=== PATIENT | female | born 1995 | race Caucasian/White ===

== ENCOUNTER → 2023-05-21 09:45 | Outpatient (BNVA) | payer BC, SELFPAY | PROVIDERS: PCP Nurse Practitioner Family; Referring Provider Nurse Practitioner Family; Visit Provider Nurse Practitioner Women's Health | DX: E28.2 Polycystic ovarian syndrome (principal) | CPT/HCPCS: 80053; 80061; 82670; 83001; 83036; 84439; 84443; 84702 ==

== ENCOUNTER → 2023-06-03 10:12 | Outpatient (BNVA) | payer BC, SELFPAY | PROVIDERS: PCP Nurse Practitioner Family; Visit Provider Nurse Practitioner Women's Health | DX: E28.2 Polycystic ovarian syndrome (principal) | CPT/HCPCS: 76856 ==

== ENCOUNTER → 2024-07-21 16:27 | Outpatient (BNVA) | payer BC, SELFPAY | PROVIDERS: PCP Nurse Practitioner Family; Visit Provider Nurse Practitioner Women's Health | DX: Z12.4 Encounter for screening for malignant neoplasm of cervix (principal) | CPT/HCPCS: 87624 ==

== ENCOUNTER 2024-08-24 23:05 | Emergency (ER) | payer BC, SELFPAY ==
[2024-08-24 23:06] VITALS: BP 131/83; PULSE 63; RESP 18; TEMP 36.6; O2SAT 99; BMI 49.9
[2024-08-24 23:31] VITALS: BP 135/61; PULSE 70; RESP 18; O2SAT 100
[2024-08-24] MEDS: lidocaine 2% viscous 15 ML, aluminum-mag hydrox-simethicon 30 ML, sucralfate oral liq 1 GM PO (23:44)
[2024-08-25] VITALS (7 sets, daily range): BP systolic 128–146; BP diastolic 56–90; PULSE 63–84; RESP 18; O2SAT 97–100
[2024-08-25 00:08] LABS: Add Urine Microscopic? YES; Bacteria Urine Trace /hpf; Bilirubin Urine Negative (Negative); Blood Urine Non-haemolysed trace (Negative); Glucose Urine UA Negative (Normal); Hyaline Casts Urine 1.65 /lpf; Ketones Urine 1+ (Negative); Leukocyte Esterase Urine Trace (Negative); Nitrate Urine Negative (Negative); Protein Urine Trace (Negative); Specific Gravity, Urine 1.031 (1.005-1.030); Urine Appearance Clear (CLEAR); Urine Color Yellow (Yellow)
--- NOTE | 2024-08-25 00:13 | ED_ITS ---
Documented by User: PRO Noland 08/25/24 13:30 HPI - Abdominal Pain 2 General: Chief Complaint: Abdominal Pain Stated Complaint: abd pain Time Seen by Provider: 08/24/24 23:27 Source: patient Mode of arrival: ambulatory Limitations: no limitations History of Present Illness: Patient is a 29-year-old female presenting to the emergency department complaining of abdominal pain for the past 5 days. She states that it initially began in the left upper quadrant, and is now the right upper quadrant extends to the back. Still has her gallbladder and appendix. History of PCOS, no other medical history other than hypothyroid issue for which she takes levothyroxine. Denies any vomiting, constipation or diarrhea, urinary symptoms, fevers, or other symptoms at this time. She states the pain is currently a 7/10, feels like a sharpness. States that shortly after eating it is worsened. MD elicited complaint: abdominal pain Onset (ago): day(s) (5) Location: LUQ and RUQ Severity: moderate Pain scale (0-10): 7 Radiation: back Exacerbating factors: eating Associated Symptoms: Denies bloating, change in stool character, chills, constipation, diarrhea, dysuria, fever(s), hematochezia, nausea and vomiting Related Data Home Medications Medication Instructions Recorded Confirmed levothyroxine 25 mcg capsule 25 mcg PO DAILY 07/08/23 07/21/24 fish, borage, flaxseed oils-omega cap PO DAILY 07/21/24 07/21/24 3,6,9 comb no.1 1,200 mg capsule ([place] 3-6-9) Previous Rx's Medication Instructions Recorded norethindrone 1 mg-ethinyl 1 tab PO DAILY #84 tabs 07/21/24 estradiol 20 mcg (21)-iron 75 mg (7) tablet (11/08 (28)) amoxicillin 875 mg-potassium 1 tab PO Q12H #14 tabs 08/25/24 clavulanate 125 mg tablet meloxicam 7.5 mg tablet 7.5 mg PO .Twice daily #14 tabs 08/25/24 Allergies Allergy/AdvReac Type Severity Reaction Status Date / Time No Known Allergies Allergy Verified 08/24/24 23:15 Review of Systems 2 General: Reports: 10 or more systems reviewed and unremarkable except in HPI and below Const: Denies: fever(s), chills, change in appetite, change in weight or diaphoresis ENMT: Denies: throat pain or hoarseness Card: Denies: chest pain, palpitations or lightheadedness Resp: Denies: dyspnea, productive cough or wheezing GI: Reports: abdominal pain; Denies: nausea, vomiting, diarrhea, constipation, bloating, change in stool character or hematochezia : Denies: flank pain, difficulty voiding, dysuria, urinary frequency or urinary urgency Musc: Reports: back pain; Denies: neck pain Skin/Breast: Denies: rash or new lesions Neuro: Denies: headache(s) or dizziness PFSH ED 2 PFSH: Medical History Hypothyroid PCOS (polycystic ovarian syndrome) No pertinent past medical history neghx: htn, dm, thyroid(pending), dvt/pe PCP: Junie Nicole NP Surgical History No pertinent past surgical history Family History Father Hypertension Diabetes Mother Hypertension Thyroid disease Grandfather Breast cancer Grandmother Breast cancer Uterine cancer Denies family history of Colon cancer Ovarian cancer Heart disease Hyperlipidemia Stroke Social History Smoking and tobacco/nicotine status: never used tobacco/nicotine Physical Exam 2 Const: COMMON NORMALS: no acute distress, patient oriented x3, no limitations, healthy appearing, alert and well nourished GENERAL APPEARANCE: cooperative and comfortable NUTRITIONAL APPEARANCE: obese morbidly obese O RIENTATION/CONSCIOUSNESS: Yes awake HENMT: COMMON NORMALS: normocephalic, atraumatic, hearing grossly normal bilaterally, external ears normal, Normal external nose present, Normal nasal mucous membranes and turbinates present and moist oral mucous membranes HEAD & SCALP: normocephalic and atraumatic NOSE: Normal external nose present and Normal nasal mucous membranes and turbinates present EXTERNAL EAR: Yes external ears normal Eye: COMMON NORMALS: Equal, round and reactive pupils present, EOMs intact bilaterally, conjunctivae normal and normal visual thomas by confrontation C ONJUNCTIVA: Yes conjunctivae normal PUPIL: Yes Equal, round and reactive pupils present Neck/C-Spine: COMMON NORMALS: full ROM, supple, no meningeal signs and no JVD Resp: COMMON NORMALS: normal respiratory effort, No retractions, No use of accessory muscles and clear to auscultation bilaterally AUSCULTATION: clear to auscultation bilaterally, no crackles, no rales, no rhonchi and no wheezes Cardio: COMMON NORMALS: no JVD, regular rate, regular rhythm, S1 normal heart sound present, S2 normal heart sound present, No gallops present (Cardio), No clicks present (Cardio), No murmurs present (Cardio), No rub (Cardio) and Peripheral pulses 2+ throughout RATE: regular rate RHYTHM: regular rhythm HEART SOUNDS: S1 normal heart sound present and S2 normal heart sound present PERIPHERAL PULSES: Peripheral pulses 2+ throughout GI: COMMON NORMALS: Normal to inspection, nondistended, normoactive bowel sounds present, Soft to palpation, No hepatosplenomegaly present and no masses AUSCULTATION: Yes normoactive bowel sounds PALPATION: Yes Soft to palpation, Yes Tenderness to palpation present (GI) (Negative Max sign) Details: LUQ and RUQ, No Guarding due to palpation present (GI), No Rigid due to palpation and Yes No hepatosplenomegaly present RECTAL EXAM: deferred : COMMON NORMALS: Yes no CVA tenderness BLADDER/KIDNEY EXAM: Yes no CVA tenderness Back/Pelvis: COMMON NORMALS: no CVA tenderness Extremity: COMMON NORMALS: normal to inspection and full ROM Neuro: COMMON NORMALS: patient oriented x3, moves all extremities, no focal motor deficits and no sensory deficits noted SENSORIUM/ORIENTATION: Yes alert MENINGEAL SIGNS: Yes no meningeal signs Psych: COMMON NORMALS: mental status grossly normal, cooperative and speech normal SPEECH: Yes normal speech Skin: COMMON NORMALS: no rashes or lesions noted GENERAL SKIN EXAM: no rashes or lesions noted Course 2 Vital Signs: Vital signs: Vital Signs Temperature 97.8 F 08/24/24 23:06 Pulse Rate 84 08/25/24 03:11 Respiratory Rate 18 08/25/24 00:49 Blood Pressure 146/56 08/25/24 03:11 Pulse Oximetry 99 08/25/24 03:11 Oxygen Delivery Me thod Room Air 08/25/24 01:30 MDM - Abdominal Pain Lab Data 08/25/24 01:04 08/25/24 01:04 Labs/Radiology: Radiology Impressions Gallbladder Ultrasound 08/25/24 23:35 IMPRESSION: 1. Hyperechoic liver, which can be seen with fatty infiltration or hepatocellular disease. 2. Imaging findings concerning for acute calculus cholecystitis. Further evaluation with HIDA scan should be considered in the adequate clinical setting. Laboratory Results WBC 14.06 10^3/uL (3.29-11.43) H 08/25/24 01:04 RBC 5.14 10^6/uL (3.85-5.65) 08/25/24 01:04 Hgb 14.80 g/dL (11.27-16.99) 08/25/24 01:04 Hct 45.7 % (36-47) 08/25/24 01:04 MCV 88.9 fl (85-98) 08/25/24 01:04 MCH 28.8 pg (27-33) 08/25/24 01:04 MCHC 32.4 g/dL (30-55) 08/25/24 01:04 RDW 12.7 % (12.1-15.1) 08/25/24 01:04 Plt Count 277 10^3/cmm (157-399) 08/25/24 01:04 MPV 9.6 fL (7.4-10.4) 08/25/24 01:04 Neut % (Auto) 86.7 % 08/25/24 01:04 Lymph % (Auto) 9.0 % 08/25/24 01:04 [place] % (Auto) 3.6 % 08/25/24 01:04 Eos % (Auto) 0.1 % 08/25/24 01:04 Baso % (Auto) 0.3 % 08/25/24 01:04 Neut # (Auto) 12.20 10^3/uL (1.8-7.7) H 08/25/24 01:04 Lymph # (Auto) 1.3 10^3/uL (0.8-4.8) 08/25/24 01:04 [place] # (Auto) 0.5 10^3/uL (0.2-0.9) 08/25/24 01:04 Eos # (Auto) 0.0 10^3/uL (0.0-0.8) 08/25/24 01:04 Baso # (Auto) 0.0 10^3/uL (0.0-0.1) 08/25/24 01:04 Nucleated RBC % (auto) 0 % 08/25/24 01:04 Nucleated RBCs # 0.0 /100WBC 08/25/24 01:04 Sodium 139 mmol/L (136-145) 08/25/24 01:04 Potassium 4.2 mmol/L (3.5-5.1) 08/25/24 01:04 Chloride 101 mmol/L (98-107) 08/25/24 01:04 Carbon Dioxide 24 mmol/L (22-29) 08/25/24 01:04 Anion Gap 18.2 (5-19) 08/25/24 01:04 BUN 13 mg/dL (6-20) 08/25/24 01:04 Creatinine 0.8 mg/dL (0.5-0.9) 08/25/24 01:04 GFR Calculation 84.2 mL/min (90-130) L 08/25/24 01:04 Glucose 108 mg/dL (65-115) 08/25/24 01:04 Calculated Osmolality 289 mOsm/kg (285-295) 08/25/24 01:04 Calcium 9.0 mg/dL (8.5-10.5) 08/25/24 01:04 Total Bilirubin 0.5 mg/dL (0.15-1.2) 08/25/24 01:04 AST 24 U/L (0-32) 08/25/24 01:04 ALT 41 U/L (0-33) H 08/25/24 01:04 Alkaline Phosphatase 86 U/L (35-105) 08/25/24 01:04 Total Protein 7.2 g/dL (6.6-8.7) 08/25/24 01:04 Albumin 4.5 g/dL (3.5-5.2) 08/25/24 01:04 Globulin 2.7 g/dL (1.3-4.6) 08/25/24 01:04 Lipase 18 U/L (13-60) 08/25/24 01:04 HCG, Qual Negative (Negative) 08/25/24 01:04 Urine Color Yellow (Yellow) 08/24/24 23:47 Urine Appearance Clear (CLEAR) 08/24/24 23:47 Urine pH 6.0 (5-7) 08/24/24 23:47 Ur Specific [place] 1.031 (1.005-1.030) H 08/24/24 23:47 Urine Protein Trace (Negative) A 08/24/24 23:47 Urine Glucose (UA) Negative (Normal) 08/24/24 23:47 Urine Ketones 1+ (Negative) H 08/24/24 23:47 Urine Blood Non-haemolysed trace (Negative) 08/24/24 23:47 Urine Nitrate Negative (Negative) 08/24/24 23:47 Urine Bilirubin Negative (Negative) 08/24/24 23:47 Urine Urobilinogen 1.0 mg/dL (Negative) 08/24/24 23:47 Ur Leukocyte Esterase Trace (Negative) A 08/24/24 23:47 Urine RBC 3-5 /hpf (0-2) 08/24/24 23:47 Urine WBC 6-10 /hpf (0-5) 08/24/24 23:47 Ur Squamous Epith Cells 11-20 /hpf (0-5) 08/24/24 23:47 Amorphous Sediment Not Reportable 08/24/24 23:47 Urine Bacteria Trace /hpf (NONE) 08/24/24 23:47 Hyaline Casts 1.65 /lpf 08/24/24 23:47 All radiology interpretation(s) finalized by discharge Discharge Plan Discharge Patient Disposition: Home Clinical Impression: Acute calculous cholecystitis Condition: Stable Prescriptions: New amoxicillin-pot clavulanate 875-125 mg tablet 1 tab PO Q12H Qty: 14 0RF meloxicam 7.5 mg tablet 7.5 mg PO .Twice daily Qty: 14 0RF No Action levothyroxine 25 mcg capsule 25 mcg PO DAILY [place] 3-6-9 1,200 mg capsule PO DAILY norethindrone-e.estradiol-iron [[place] FE 11/08 (28)] 1 mg-20 mcg (21)/75 mg (7) tablet 1 tab PO DAILY Qty: 84 3RF Discharge Orders: Discharge ED (Routine); Ordered 08/25/24 Ordered By: Cyrus Martínez Referrals: Pedro Howell MD [Physician] - 4-7 days (Call his office for an appointment) Junie Nicole FNP [Primary Care Provider] - Patient Instructions: Cholecystitis (ED) Activity Restrictions/Additional Instructions: The surgeon like you to call his office first thing tomorrow to arrange an appointment within next week. You have been prescribed a pain medicine and antibiotic please fill these at the pharmacy and take these as directed. Stand Alone Forms: Work/School Release Coding Level of Care Code ED Lead Nuclear Medicine Technologist for Chg Fwd Documented by User: Cyrus Martínez DO 08/25/24 03:04 HPI - Abdominal Pain 2 General: Chief Complaint: Abdominal Pain Stated Complaint: abd pain Time Seen by Provider: 08/24/24 23:27 Related Data Home Medications Medication Instructions Recorded Confirmed levothyroxine 25 mcg capsule 25 mcg PO DAILY 07/08/23 07/21/24 fish, borage, flaxseed oils-omega cap PO DAILY 07/21/24 07/21/24 3,6,9 comb no.1 1,200 mg capsule ([place] 3-6-9) Previous Rx's Medication Instructions Recorded norethindrone 1 mg-ethinyl 1 tab PO DAILY #84 tabs 07/21/24 estradiol 20 mcg (21)-iron 75 mg (7) tablet (11/08 (28)) amoxicillin 875 mg-potassium 1 tab PO Q12H #14 tabs 08/25/24 clavulanate 125 mg tablet meloxicam 7.5 mg tablet 7.5 mg PO .Twice daily #14 tabs 08/25/24 Allergies Allergy/AdvReac Type Severity Reaction Status Date / Time No Known Allergies Allergy Verified 08/24/24 23:15 PFS ED 2 PFSH: Medical History Hypothyroid PCOS (polycystic ovarian syndrome) No pertinent past medical history neghx: htn, dm, thyroid(pending), dvt/pe PCP: Junie Nicole NP Surgical History No pertinent past surgical history Family History Father Hypertension Diabetes Mother Hypertension Thyroid disease Grandfather Breast cancer Grandmother Breast cancer Uterine cancer Denies family history of Colon cancer Ovarian cancer Heart disease Hyperlipidemia Stroke Social History Smoking and tobacco/nicotine status: never used tobacco/nicotine Course 2 Vital Signs: Vital signs: Vital Signs Temperature 97.8 F 08/24/24 23:06 Pulse Rate 84 08/25/24 03:11 Respiratory Rate 18 08/25/24 00:49 Blood Pressure 146/56 08/25/24 03:11 Pulse Oximetry 99 08/25/24 03:11 Oxygen Delivery Me thod Room Air 08/25/24 01:30 MDM - Abdominal Pain Medical Decision Making Lab work reviewed as well as ultrasound, patient has acute cholecystitis, these results were discussed with the patient. These results was also discussed with the Dr. Howell who wants us to give her a weeks worth of Augmentin and have her follow-up with him on an outpatient basis. Lab Data 08/25/24 01:04 08/25/24 01:04 Labs/Radiology: Radiology Impressions Gallbladder Ultrasound 08/25/24 23:35 IMPRESSION: 1. Hyperechoic liver, which can be seen with fatty infiltration or hepatocellular disease. 2. Imaging findings concerning for acute calculus cholecystitis. Further evaluation with HIDA scan should be considered in the adequate clinical setting. Laboratory Results WBC 14.06 10^3/uL (3.29-11.43) H 08/25/24 01:04 RBC 5.14 10^6/uL (3.85-5.65) 08/25/24 01:04 Hgb 14.80 g/dL (11.27-16.99) 08/25/24 01:04 Hct 45.7 % (36-47) 08/25/24 01:04 MCV 88.9 fl (85-98) 08/25/24 01:04 MCH 28.8 pg (27-33) 08/25/24 01:04 MCHC 32.4 g/dL (30-55) 08/25/24 01:04 RDW 12.7 % (12.1-15.1) 08/25/24 01:04 Plt Count 277 10^3/cmm (157-399) 08/25/24 01:04 MPV 9.6 fL (7.4-10.4) 08/25/24 01:04 Neut % (Auto) 86.7 % 08/25/24 01:04 Lymph % (Auto) 9.0 % 08/25/24 01:04 [place] % (Auto) 3.6 % 08/25/24 01:04 Eos % (Auto) 0.1 % 08/25/24 01:04 Baso % (Auto) 0.3 % 08/25/24 01:04 Neut # (Auto) 12.20 10^3/uL (1.8-7.7) H 08/25/24 01:04 Lymph # (Auto) 1.3 10^3/uL (0.8-4.8) 08/25/24 01:04 [place] # (Auto) 0.5 10^3/uL (0.2-0.9) 08/25/24 01:04 Eos # (Auto) 0.0 10^3/uL (0.0-0.8) 08/25/24 01:04 Baso # (Auto) 0.0 10^3/uL (0.0-0.1) 08/25/24 01:04 Nucleated RBC % (auto) 0 % 08/25/24 01:04 Nucleated RBCs # 0.0 /100WBC 08/25/24 01:04 Sodium 139 mmol/L (136-145) 08/25/24 01:04 Potassium 4.2 mmol/L (3.5-5.1) 08/25/24 01:04 Chloride 101 mmol/L (98-107) 08/25/24 01:04 Carbon Dioxide 24 mmol/L (22-29) 08/25/24 01:04 Anion Gap 18.2 (5-19) 08/25/24 01:04 BUN 13 mg/dL (6-20) 08/25/24 01:04 Creatinine 0.8 mg/dL (0.5-0.9) 08/25/24 01:04 GFR Calculation 84.2 mL/min (90-130) L 08/25/24 01:04 Glucose 108 mg/dL (65-115) 08/25/24 01:04 Calculated Osmolality 289 mOsm/kg (285-295) 08/25/24 01:04 Calcium 9.0 mg/dL (8.5-10.5) 08/25/24 01:04 Total Bilirubin 0.5 mg/dL (0.15-1.2) 08/25/24 01:04 AST 24 U/L (0-32) 08/25/24 01:04 ALT 41 U/L (0-33) H 08/25/24 01:04 Alkaline Phosphatase 86 U/L (35-105) 08/25/24 01:04 Total Protein 7.2 g/dL (6.6-8.7) 08/25/24 01:04 Albumin 4.5 g/dL (3.5-5.2) 08/25/24 01:04 Globulin 2.7 g/dL (1.3-4.6) 08/25/24 01:04 Lipase 18 U/L (13-60) 08/25/24 01:04 HCG, Qual Negative (Negative) 08/25/24 01:04 Urine Color Yellow (Yellow) 08/24/24 23:47 Urine Appearance Clear (CLEAR) 08/24/24 23:47 Urine pH 6.0 (5-7) 08/24/24 23:47 Ur Specific [place] 1.031 (1.005-1.030) H 08/24/24 23:47 Urine Protein Trace (Negative) A 08/24/24 23:47 Urine Glucose (UA) Negative (Normal) 08/24/24 23:47 Urine Ketones 1+ (Negative) H 08/24/24 23:47 Urine Blood Non-haemolysed trace (Negative) 08/24/24 23:47 Urine Nitrate Negative (Negative) 08/24/24 23:47 Urine Bilirubin Negative (Negative) 08/24/24 23:47 Urine Urobilinogen 1.0 mg/dL (Negative) 08/24/24 23:47 Ur Leukocyte Esterase Trace (Negative) A 08/24/24 23:47 Urine RBC 3-5 /hpf (0-2) 08/24/24 23:47 Urine WBC 6-10 /hpf (0-5) 08/24/24 23:47 Ur Squamous Epith Cells 11-20 /hpf (0-5) 08/24/24 23:47 Amorphous Sediment Not Reportable 08/24/24 23:47 Urine Bacteria Trace /hpf (NONE) 08/24/24 23:47 Hyaline Casts 1.65 /lpf 08/24/24 23:47 Discharge Plan Discharge Patient Disposition: Home Clinical Impression: Acute calculous cholecystitis Condition: Stable Prescriptions: New amoxicillin-pot clavulanate 875-125 mg tablet 1 tab PO Q12H Qty: 14 0RF meloxicam 7.5 mg tablet 7.5 mg PO .Twice daily Qty: 14 0RF No Action levothyroxine 25 mcg capsule 25 mcg PO DAILY [place] 3-6-9 1,200 mg capsule PO DAILY norethindrone-e.estradiol-iron [11/08 (28)] 1 mg-20 mcg (21)/75 mg (7) tablet 1 tab PO DAILY Qty: 84 3RF Discharge Orders: Discharge ED (Routine); Ordered 08/25/24 Ordered By: Cyrus Martínez Referrals: Pedro Howell MD [Physician] - 4-7 days (Call his office for an appointment) Junie Nicole FNP [Primary Care Provider] - Patient Instructions: Cholecystitis (ED) Activity Restrictions/Additional Instructions: The surgeon like you to call his office first thing tomorrow to arrange an appointment within next week. You have been prescribed a pain medicine and antibiotic please fill these at the pharmacy and take these as directed. Stand Alone Forms: Work/School Release Coding Level of Care Code ED Lead Nuclear Medicine Technologist for Tash Ruiz
[2024-08-25 01:18] LABS: Basophils % 0.3 %; Eosinophils % 0.1 %; Hematocrit 45.7 % (36-47); Lymphocytes # 1.3 10^3/uL (0.8-4.8); Mean Corpuscular HGB Conc 32.4 g/dL (30-55); Mean Corpuscular Hemoglobin 28.8 pg (27-33); Mean Corpuscular Volume 88.9 fl (85-98); Mean Platelet Volume 9.6 fL (7.4-10.4); Monocytes # 0.5 10^3/uL (0.2-0.9); Monocytes % 3.6 %; Neutrophils % 86.7 %; Nucleated Red Blood Cells % 0 %; Platelet Count 277 10^3/cmm (157-399); Red Blood Count 5.14 10^6/uL (3.85-5.65); Red Cell Distribution Width 12.7 % (12.1-15.1); White Blood Count 14.06 10^3/uL (3.29-11.43)
[2024-08-25 01:31] LABS: HCG, Serum Qual Negative (Negative)
[2024-08-25 01:38] LABS: Alanine Aminotransferase 41 U/L (0-33); Albumin Level 4.5 g/dL (3.5-5.2); Alkaline Phosphatase 86 U/L (35-105); Anion Gap 18.2 (5-19); Aspartate Amino Transferase 24 U/L (0-32); Blood Urea Nitrogen 13 mg/dL (6-20); Carbon Dioxide 24 mmol/L (22-29); Chloride 101 mmol/L (98-107); Creatinine Clr Calc Pharmacy 153.9478; Globulin 2.7 g/dL (1.3-4.6); Glomerular Filtration Rate 84.2 mL/min (90-130); Glucose 108 mg/dL (65-115); Lipase 18 U/L (13-60); Osmolality Calculated 289 mOsm/kg (285-295); Potassium 4.2 mmol/L (3.5-5.1); Sodium 139 mmol/L (136-145); Total Bilirubin 0.5 mg/dL (0.15-1.2); Total Protein 7.2 g/dL (6.6-8.7)
[2024-08-25] MEDS: amoxicillin-clav 875-125 mg Tablet 1 TAB PO (03:13)
--- NOTE | 2024-08-25 23:35 | USR_ITS ---
PROCEDURE INFORMATION: Exam: US Abdomen, Limited; Right Upper Quadrant Exam date and time: 08/25/2024 12:23 AM Age: 29 years old Clinical indication: Abdominal pain; Epigastric; Additional info: Ruq pain TECHNIQUE: Imaging protocol: Real time ultrasound of the abdomen with image documentation. Limited exam focused on the right upper quadrant. COMPARISON: US pelvic complete* [id number] 06/03/2023 10:24 AM FINDINGS: Liver: Liver is diffusely increased in echogenicity, most commonly seen in hepatic steatosis, though other forms of parenchymal liver disease could have a similar appearance. This limits evaluation for subtle isoechoic masses but no masses are seen. Patent main portal vein with normal direction of flow. Gallbladder: Gallstones and sludge noted. Thickened gallbladder wall measuring 5 mm. Positive sonographic Max's sign. Biliary ducts: Normal. No stones. No dilation. Pancreas: Visualized pancreas is unremarkable. Right kidney: Normal. No mass. No hydronephrosis. US/US gall bladder [id number] IMPRESSION: 1. Hyperechoic liver, which can be seen with fatty infiltration or hepatocellular disease. 2. Imaging findings concerning for acute calculus cholecystitis. Further evaluation with HIDA scan should be considered in the adequate clinical setting.
== END 2024-08-25 03:14 | disposition home or self-care (01) ==
PROVIDERS: Emergency Provider Physician Assistant; PCP Nurse Practitioner Family
DX: K80.10 Calculus of gallbladder with chronic cholecystitis without obstruction (principal)
CPT/HCPCS: 76705; 80053; 81001; 83690; 84703; 85025; 99284

== ENCOUNTER 2024-09-20 05:41 | Day surgery (SDC) | payer BC, SELFPAY ==
[2024-09-20] VITALS (12 sets, daily range): BP systolic 97–158; BP diastolic 62–91; PULSE 68–101; RESP 17–20; TEMP 36.1–37.2; O2SAT 93–98; BMI 45.6
--- NOTE | 2024-09-20 05:44 | W.PM.OPSUD ---
Surgery/Procedure H&P Update DATE OF PROCEDURE: September 20, 2024 DATE H&P PERFORMED: 08/25/24 H&P UPDATE INFORMATION: I have reviewed H&P completed within last 30 days, I have examined patient prior to procedure, No changes to prior documentation and Changes to prior documentation as noted here PLANNED PROCEDURE: Operation Date: 09/20/24 07:00 Proposed Procedures p Laparoscopic Cholecystectomy 84881, K82.9(Not Applicable) - Pedro Howell MD
--- NOTE | 2024-09-20 06:26 | ANES.PREANE2 ---
Pre-Anesthetic Assessment Height/Weight: Height 5 ft 7 in Weight 291 lb Temp Pulse Resp BP Pulse Ox O2 Del Method 98.9 F 101 H 18 158/89 98 Room Air 09/20/24 06:06 09/20/24 06:06 09/20/24 06:06 09/20/24 06:06 09/20/24 06:06 09/20/24 06:06 Preop Diagnosis: Cholecystitis Operation Date: 09/20/24 07:00 Proposed Procedures p Laparoscopic Cholecystectomy 98521, K82.9(Not Applicable) - Pedro Howell MD Was Beta Marlys taken within 24 hours: N/A Was Clonidine taken within 24 hours: N/A Social No alcohol and No tobacco Exam alert, oriented x 3, clear to auscultation bilaterally and regular rate & rhythm Airway Submandibular: within normal limits Cervical ROM: within normal limits Mallampati: Class II Dentition: full Comments: Comments: Good mouth opening Anesthetic Plan ASA status: 3 Anesthesia: General Other: Patient has never had a surgery before NPO since yesterday History of hypothyroidism, on Synthroid Denies any cardiac or pulmonary issues Preop BP 158/89 BMI 45.6 Labs reviewed METs greater than 4 Plan for GETA Medications/Allergies Home Medications Medication Instructions Recorded Confirmed Last Taken Type levothyroxine 25 mcg capsule 25 mcg PO DAILY 07/08/23 09/15/24 09/19/24 History fish, borage, flaxseed oils-omega 1 cap PO DAILY 07/21/24 09/15/24 09/19/24 History 3,6,9 comb no.1 1,200 mg capsule ([place] 3-6-9) norethindrone 1 mg-ethinyl 1 tab PO DAILY #84 tabs 07/21/24 09/15/24 09/19/24 Rx estradiol 20 mcg (21)-iron 75 mg (7) tablet (11/08 (28)) Allergies Allergy/AdvReac Type Severity Reaction Status Date / Time No Known Allergies Allergy Verified 09/15/24 09:39 [facility] Anesthesia Medical History Hypothyroid PCOS (polycystic ovarian syndrome) No pertinent past medical history neghx: htn, dm, thyroid(pending), dvt/pe PCP: Junie Nicole NP Surgical History No pertinent past surgical history Family History Father Hypertension Diabetes Mother Hypertension Thyroid disease Grandfather Breast cancer Grandmother Breast cancer Uterine cancer Denies family history of Colon cancer Ovarian cancer Heart disease Hyperlipidemia Stroke Social History Smoking and tobacco/nicotine status: never used tobacco/nicotine Alcohol intake: never Female Reproductive History Date of last menstrual period: 08/21/24 Data Anesthesia Cardiac Studies: No Data to Display
[2024-09-20] MEDS: sodium chloride 0.9% 1,000 ML 30 ML IV (06:46)
[2024-09-20] MEDS: scopolamine 1.5 Patch 1 PATCH TRANSDERMA (06:46)
[2024-09-20] MEDS: ceFAZolin 3,000 MG in sodium chloride 0.9% (plus) 100 ML 200 MG IV (07:04)
[2024-09-20 07:05] LABS: OR HCG Qualitative Urine Negative (Negative)
[2024-09-20] MEDS: BUPivacaine 0.25% INJ 10 mL INJECTION (09:00)
[2024-09-20] MEDS: lidocaine-epi 1% 20 mL INJ INJECTION (09:00)
--- NOTE | 2024-09-20 09:17 | P.OP_ITS ---
Operative Report Date of procedure: September 20, 2024 Pre-op diagnosis: History of acute cholecystitis Post-op diagnosis: Chronic cholecystitis with cholelithiasis Post-op findings: Chronic inflammation at the level of Calot's triangle with significant inflammatory scar tissue formation. Enlarged node noted near the cystic artery. Enlarged liver. Procedure done: Laparoscopic cholecystectomy Specimens removed/disposition: Gallbladder Surgeon: Pedro Howell MD Can Line Examiner: YESICA OR STaff Estimated blood loss: 5 Complications: none Brief History: 29-year-old female who presented with acute cholecystitis about a month ago she was started with antibiotics and was referred to my clinic for evaluation. After discussion risk benefits as documented my preop note with side to proceed to the OR for laparoscopic cholecystectomy. Procedure: Patient was brought into the OR, she was placed in a supine position. General anesthesia was given. The abdomen was prepped and draped in the usual sterile fashion. A timeout was conducted. The abdomen was accessed in the left upper quadrant with a 5 mm Optiview trocar, initial pneumoperitoneum was achieved and initial laparoscopy showed no evidence of visceral injury during entry. A total millimeter trocar was placed in the supra umbilical location under direct visualization, additional 5 mm trocars were placed in the epigastrium right up per quadrant right flank under direct visualization. The patient was placed in a steep reverse Trendelenburg with the left side down. The gallbladder was grasped from the fundus and retracted cephalad, very minimal adhesions from the omentum to the gallbladder were taken down bluntly. There was significant inflammation at the level of the Calot's triangle and patient had an enlarged liver making exposure very challenging. I grasped infundibulum and retracted in the inferolateral direction and then I proceeded to open the peritoneum anterior to the pathologic triangle with electrocautery, I carried this opening in the medial and lateral direction to the edges of the liver and then the sides of the gallbladder to allow for better exposure. The cystic artery was noted in the usual anatomical location but there was a very large inflamed node of Calot near the artery. With careful blunt dissection and electrocautery I was able to completely dissect the artery of the gallbladder, since exposure was challenging I decided to take down the artery before proceeding with additional dissection. I double clipped the artery proximally single clipped distally and transected. After this I was able to completely elevate the lower third of the gallbladder from the liver bed and I was able to encircle the cystic duct. I then proceeded to milk the cystic duct with my [place] to remove any stones from that area. I then proceeded to double clipped the cystic duct proximally and single clipped distally and transected. The gallbladder was removed from the liver with electrocautery, during removal a small hole was made in the gallbladder, all stones and bile duct leak was aspirated with suction irrigation. The specimen was then removed through the supraumbilical trocar in an Endo Catch bag. I then proceeded to evaluate the liver bed the area was irrigated and suctioned no residual stones or bile was noted, there was no bleeding and no bile leak, the clips were in a good position. I then proceeded to close the supraumbilical trocar site under direct visualization using a Guicho-Dalia suture passer and 0 Vicryl. The right upper quadrant right flank and epigastrium trocars were removed under direct visualization the left upper quadrant trocar was used to evacuate the pneumoperitoneum and subsequently removed. The wounds were closed in layers using #3-0 Vicryl for the subcutaneous tissue #4 Monocryl for the skin. Local anesthesia was infiltrated and Dermabond was applied. At the end of the procedure all counts were correct, the patient tolerated well the proced ure was transferred to PACU in stable condition.
[2024-09-20] MEDS: ondansetron 2 mg/ML SDV 2 mL 4 MG IVP ×2 (10:06→10:28)
[2024-09-20] MEDS: famotidine 20 mg/2 mL INJ IVP (10:28)
[2024-09-20] MEDS: oxyCODONE 5 mg IR Tab/Cap PO (10:52)
--- NOTE | 2024-09-20 11:16 | ANE.PACU2 ---
Inpatient post-anesthesia follow up: Airway intact: Yes Vital signs: Temperature 97.5 F Pulse Rate 68 Respiratory Rate 18 Blood Pressure 152/82 Pulse Oximetry 96 Oxygen Delivery Me thod Room Air Oxygen Flow Rate Fraction of Inspir ed Oxygen Hydration adequate: Yes Nausea and vomiting: No Pain level: 1 Mental status: Baseline
== END 2024-09-20 11:37 | disposition home or self-care (01) ==
PROVIDERS: Student in an Organized Health Care Education/Training Program; PCP Nurse Practitioner Family; Visit Provider Surgery
PROC: 0FT44ZZ Resection of Gallbladder, Percutaneous Endoscopic Approach (ICD-10-PCS; CPT 47562; principal; 2024-09-20 07:00)
DX: K80.10 Calculus of gallbladder with chronic cholecystitis without obstruction (principal); R16.0 Hepatomegaly, not elsewhere classified; E03.9 Hypothyroidism, unspecified; E28.2 Polycystic ovarian syndrome
CPT/HCPCS: 47562; 81025; 88304; J0690; J1100; J1171; J1885; J2250; J2371; J2405; J2704; J3010; J3490; J7030